=== PATIENT | male | born 1945 | race Caucasian/White ===

== ENCOUNTER → 2016-04-09 | Outpatient (CLI) | payer OTHER, MEDICARE ==
--- NOTE | 2016-04-09 17:17 | DX ---
Knee 1 or 2 Views Left History: Chronic left knee pain. History of prior knee surgery. Comparison exam: None available. Findings: Medial compartment appears mildly narrowed. No fracture or joint effusion. Impression: Medial compartment osteoarthritis.
== END ==
LOC: FIMAGING 10:08
PROVIDERS: ATTEND Family Medicine
DX: M17.12 Unilateral primary osteoarthritis, left knee (principal)

== ENCOUNTER → 2018-03-20 | Outpatient (CLI) | payer OTHER, MEDICARE ==
[~2018-03-20] MED LIST: LIDOCAINE 1% 300 MG/30 ML SDV ONE
== END ==
LOC: FIMAGING 09:15 → EDSTATUS 09:17
PROVIDERS: ATTEND Specialist
PROC: 0H9MXZZ Drainage of Right Foot Skin, External Approach (ICD-10-PCS; principal; 2018-03-20)
DX: R22.41 Localized swelling, mass and lump, right lower limb (principal)